=== PATIENT | female | born 1960 | race Hispanic/Latino ===

== ENCOUNTER 2016-09-29 20:12 | Emergency (ER) | payer SELFPAY ==
[2016-09-29] MEDS ORDERED: VITAMIN B-1 100 MG, FOLVITE 1 MG, INFUVITE 10 ML in NACL 0.9% 1000 ML 1,000 ML IV ONE (20:38)
[2016-09-29] MEDS ORDERED: NACL 0.9% 1000 ML 1,000 ML IV ONE (20:38)
--- NOTE | 2016-09-29 20:56 | Emergency Department Report ---
HPI - General Chief Complaint: Psych Time Seen by Provider: 09/29/16 20:31 - HPI HPI: The patient's 55-year-old female with a history of depression, presents for evaluation of mental health. The patient reports 1 day of constant and severe thoughts of sadness, hopelessness, and suicidal ideation, exacerbated with illicit drug use. She shares that she was released prematurely from rehabilitation one day ago. This upset her and she use illicit drugs yesterday after being released, including cocaine. The patient denies fever, headache, unexplained weight loss or weight gain, heat or cold intolerance, skin, hair, or nail changes, neuro deficits, homicidal ideations, or auditory or visual hallucinations. ED Past Medical Hx - Past Medical History Hx Hypertension: Yes (1994) Hx of Cancer: Yes (breast, melanoma) Hx Kidney Stones: Yes (kidney stents) Hx Psychiatric Treatment: Yes ([facility], manic depression) Additional medical history: Degenerative bone disease - back, hip, knee - Surgical History Hx Breast Surgery: Yes (1998 - right breast) Additional Surgical History: 3 kidney stents, melanoma removed on right side, right masectomy - Social History Smoking Status: Current Every Day Smoker Substance Use Type: Alcohol, Cocaine - Medications Home Medications: Home Medications Medication Instructions Recorded Confirmed Last Taken Type Lisinopril [Zestril] 20 mg PO QDAY 05/05/16 09/29/16 1 Day Ago History PARoxetine [Paxil] 20 mg PO DAILY 05/05/16 09/29/16 Unknown History Naproxen [Naprosyn] 500 mg PO BID 09/29/16 09/29/16 Unknown History ED Review of Systems ROS: Stated complaint: MH EVAL Other details as noted in HPI Constitutional: denies: fever ENT: denies: throat or neck pain Respiratory: denies: cough, shortness of breath Cardiovascular: denies: chest pain Endocrine: denies unexplained weight loss or gain Gastrointestinal: denies: abdominal pain, nausea Genitourinary: denies: dysuria Musculoskeletal: denies: leg swelling Skin: denies: rash Neurological: denies: headache Hematological/Lymphatic: denies: easy bleeding or easy bruising Psych: reports sadness, hopelessness, and SI Physical Exam - Physical Exam Vital Signs: Vital Signs 09/29/16 20:31 Temperature 98.7 F Pulse Rate 91 H Blood Pressure 93/63 O2 Sat by Pulse 95 Oximetry Physical Exam: General: well-nourished, well-developed, no acute distress Head: Normocephalic, atraumatic Eyes: normal sclera ENT: Mucous membranes are pale and dry Neck: No neck stiffness, no cervical adenopathy Respiratory: Breath sounds equal bilaterally, no wheezing, rales, or rhonchi Cardio: S1 and S2 present, no murmurs, rubs, gallops, capillary refill is delayed Abdomen: Normoactive bowel sounds, soft abdomen, no rigidity, no guarding or rebound tenderness Musc: No pitting edema Skin: No rash Neuro: no facial drooping, normal speech Psych: Patient tearful, flat affect, depressed mood, poor insight, positive suicidal ideation ED Course Vital Signs 09/29/16 20:31 Temperature 98.7 F Pulse Rate 91 H Blood Pressure 93/63 O2 Sat by Pulse 95 Oximetry ED Medical Decision Making - Lab Data Result diagrams: 09/29/16 21:09 09/29/16 21:09 - Medical Decision Making The patient was seen and examined by myself. The patient is placed on a cardiac catheterization technician and continuous pulse ox. On initial evaluation, the patient was found to be in no distress. Labs are obtained. IV access is established and the patient is given 1 L normal saline fluid bolus for treatment of dehydration. Lab results revealed positive cocaine screen on UDS, and elevated urine 30 cc 131, with positive LE, consistent with UTI, and otherwise labs are grossly unremarkable. The patient given a tablet of Keflex for her UTI. The patient is medically clear. Mental health is consulted. Mental health evaluates the patient and agrees that the patient is at risk of harm to self. A 1013 is completed. The patient will be admitted to a psychiatric facility once bed placement is obtained. Critical care attestation.: If time is entered above; I have spent that time in minutes in the direct care of this critically ill patient, excluding procedure time. ED Disposition Clinical Impression: Suicidal ideation, Dehydration, Polysubstance abuse, Acute UTI (urinary tract infection) Disposition: DC/TX PSY HOSP/PSY UNIT Is pt being admited?: No Does the pt Need Aspirin: No Condition: Stable Referrals: PRIMARY CARE, [Primary Care Provider] - 3-5 Days Time of Disposition: 20:40
[2016-09-29 21:26] LABS: Urine Drugs of Abuse Note Disclamer
[2016-09-29 21:34] LABS: Basophils % (Auto) 0.6 % (0.0-1.8); Eosinophils % (Auto) 0.5 % (0.0-4.3); Hematocrit 42.1 % (30.3-42.9); Hemoglobin 14.1 gm/dl (10.1-14.3); Mean Corpuscular HGB Conc 34 % (30-34); Mean Corpuscular Hemoglobin 31 pg (28-32); Mean Corpuscular Volume 94 fl (79-97); Platelet Count 274 K/mm3 (140-440); Red Blood Count 4.51 M/mm3 (3.65-5.03); White Blood Count 10.4 K/mm3 (4.5-11.0)
[2016-09-29 21:42] LABS: BUN/Creatinine Ratio 9.09; Calcium 9.5 mg/dL (8.4-10.2); Chloride 101.2 mmol/L (98-107); Potassium 4.5 mmol/L (3.6-5.0)
[2016-09-29 21:44] LABS: Bacteria,Urine 1+ /HPF (Negative); Bilirubin,Urine NEG (Negative); Blood,Urine MOD (Negative); Ketones,Urine NEG (Negative); Leukocyte Esterase,Urine LG (Negative); Mucus,Urine FEW /HPF; Nitrite,Urine NEG (Negative); Protein,Urine <15 mg/dL mg/dL (Negative); Urobilinogen,Urine < 2.0 mg/dL (<2.0)
[2016-09-29] MEDS ORDERED: ALUM-MAG HYDROX-SIMETH 200-200-20MG/5ML PO PRN (21:48)
[2016-09-29] MEDS ORDERED: MILK OF MAGNESIA PO PRN (21:48)
[2016-09-29] MEDS ORDERED: TYLENOL PO PRN (21:48)
[2016-09-30] MEDS ORDERED: KEFLEX PO ONE (02:00)
[2016-09-30 04:36] VITALS: BP 100/60
[2016-09-30] MEDS ORDERED: KEFLEX PO SCH (08:00)
[2016-09-30] MEDS ORDERED: PAXIL PO SCH (10:00)
[2016-09-30] MEDS ORDERED: ZESTRIL PO SCH (10:00)
== END 2016-09-30 05:59 ==
LOC: EEVIPCON 20:12 → ED 20:12
DX: R45.851 Suicidal ideations (principal); E86.0 Dehydration; F19.10 Other psychoactive substance abuse, uncomplicated; N39.0 Urinary tract infection, site not specified; I10 Essential (primary) hypertension; F31.9 Bipolar disorder, unspecified; F17.200 Nicotine dependence, unspecified, uncomplicated; F14.90 Cocaine use, unspecified, uncomplicated; Z85.820 Personal history of malignant melanoma of skin; Z85.3 Personal history of malignant neoplasm of breast
CPT/HCPCS: 36415; 80048; 80307; 81001; 85025; 96365; 96366; 99285; G0480; J3411; J7030; 80320